=== PATIENT | female | born 1995 | race African-American/Black ===

== ENCOUNTER 2021-01-02 20:22 | Inpatient (IN) ==
[2021-01-03 02:54] LABS: Immature Granulocytes % 2.7 %; Immature Granulocytes Absolute 0.13 #; Lymphocytes # 0.6 10*3/uL (1.4-4.0); Lymphocytes % 12.8 % (21.3-54.2); Mean Corpuscular HGB Conc 32.5 GM/DL (32-36); Mean Corpuscular Volume 85.5 FL (87-102); Mean Platelet Volume 12.3 FL (9.6-12.0); Monocytes % 5.6 % (1.7-12.7); Neutrophils % 78.9 % (38.7-73.9); Platelet Count 151 T/CUMM (130-400); Red Blood Count 4.68 MC/CUMM (3.8-5.5); Red Cell Distribution Width 13.9 % (9.3-17.3); White Blood Count 4.9 T/CUMM (4-12)
[2021-01-03 03:14] LABS: Alanine Aminotransferase 34 U/L (13-56); Albumin 2.9 G/DL (3.4-5.0); Alkaline Phosphatase 100 U/L (45-117); Aspartate Amino Transferase 40 U/L (0-37); Bilirubin,Total < 0.39 MG/DL (0.20-1.00); Blood Urea Nitrogen 5 MG/DL (7-18); Carbon Dioxide 19 MMOL/L (21-32); Estimated Glom Filtration Rate 212 ML/MIN; Glucose 133 MG/DL (74-106); Osmolality,Calculated 266.2 MOS/KG (273-304); Potassium 3.4 MMOL/L (3.5-5.1); Sodium 134 MMOL/L (136-145); Total Protein 7.5 G/DL (6.4-8.2)
[2021-01-03 03:55] LABS: Hypochromasia Slight; Microcytosis Slight
[2021-01-03 03:56] LABS: Platelet Estimate Adequate
[2021-01-03] MEDS ORDERED: DEXAMETHASONE 4 MG/1 ML VIAL IM STA (05:06)
[2021-01-03] MEDS ORDERED: SODIUM CHLORIDE 0.9% 1,000 ML IV STA (05:06)
[2021-01-03] MEDS ORDERED: PIPERACILLIN/TAZOBACTAM 3,375 MG in SODIUM CHLORIDE 0.9% 100 ML IV STA (05:25)
[2021-01-03] MEDS ORDERED: ENOXAPARIN 120 MG/0.8 ML SYRINGE SUBCUT STA (05:40)
[2021-01-03] MEDS ORDERED: GLUCAGON 1 MG VIAL IM PRN (05:50)
[2021-01-03] MEDS ORDERED: ACETAMINOPHEN 500 MG TABLET PO STA (05:50)
[2021-01-03] MEDS ORDERED: DEXTROSE 50% 25 GM/50 ML VIAL IV PRN (05:50)
[2021-01-03] MEDS ORDERED: hydrALAZINE 20 MG/1 ML VIAL IV PRN (06:05)
[2021-01-03] MEDS ORDERED: ACETAMINOPHEN 325 MG TABLET PO PRN (06:05)
[2021-01-03] MEDS ORDERED: CALCIUM CARBONATE CHEW 500 MG TABLET PO PRN (06:05)
[2021-01-03] MEDS ORDERED: NICOTINE 21 MG/24 HR PATCH TRANSDERM PRN (06:05)
[2021-01-03] MEDS ORDERED: MELATONIN 3 MG TABLET PO PRN (06:05)
[2021-01-03] MEDS ORDERED: ONDANSETRON 4 MG/2 ML VIAL IV PRN (06:05)
[2021-01-03] MEDS ORDERED: MORPHINE 2 MG/1 ML SYRINGE IV PRN (06:05)
[2021-01-03 06:34] LABS: Bilirubin,Urine Negative (Negative); Blood, Urine Negative (Negative); Glucose,Urine (UA) 50 mg/dL (Negative); Ketones,Urine 20 mg/dL (Negative); Mucus,Urine Occasional /LPF (Occasional); Nitrite,Urine Negative (Negative); Protein,Urine 100 MG/DL; RBC,Urine 31 /HPF (0-4); Squamous Epithelial Cell,Urine Many /HPF (0-10); Urine Appearance CLOUDY (Clear); Urine Color Amber (Yellow)
[2021-01-03] MEDS ORDERED: REMDESIVIR 200 MG in SODIUM CHLORIDE 0.9% 210 ML IV ONE (08:00)
[2021-01-03] MEDS: DEXAMETHASONE 4 MG/1 ML VIAL IV SCH (08:36)
[2021-01-03] MEDS: SODIUM CHLORIDE 0.9% 1,000 ML IV SCH ×2 (08:36→16:48)
[2021-01-03] MEDS: FAMOTIDINE 20 MG TABLET PO SCH ×2 (08:38→22:30)
[2021-01-03] MEDS: CHOLECALCIFEROL 1,000 UNIT TABLET PO SCH (08:38)
[2021-01-03] MEDS: ASCORBIC ACID 500 MG TABLET PO SCH ×2 (08:38→22:30)
[2021-01-03] MEDS: ZINC GLUCONATE 50 MG TABLET PO SCH (08:38)
[2021-01-03] MEDS: CETIRIZINE 10 MG TABLET PO SCH (08:38)
[2021-01-03] MEDS ORDERED: ENOXAPARIN 40 MG/0.4 ML SYRINGE SUBCUT SCH (17:30)
[2021-01-03] MEDS: cefTRIAXone 1,000 MG in SODIUM CHLORIDE 0.9% 100 ML IV SCH (17:33)
[2021-01-03] MEDS: guaiFENesin 200 MG/10 ML UDCUP PO PRN (23:15)
[2021-01-04] MEDS: SODIUM CHLORIDE 0.9% 1,000 ML IV SCH ×2 (01:20→14:32)
[2021-01-04 08:17] LABS: Basophils % 0.2 % (0.0-0.8); Eosinophils % 0.2 % (0.00-10.9); Hematocrit 34.5 VOL% (35.7-47.0); Immature Granulocytes % 2.5 %; Immature Granulocytes Absolute 0.12 #; Lymphocytes # 0.8 10*3/uL (1.4-4.0); Lymphocytes % 15.4 % (21.3-54.2); Mean Corpuscular HGB Conc 31.9 GM/DL (32-36); Mean Corpuscular Volume 86.9 FL (87-102); Mean Platelet Volume 11.5 FL (9.6-12.0); Monocytes % 4.7 % (1.7-12.7); Platelet Count 134 T/CUMM (130-400); Red Blood Count 3.97 MC/CUMM (3.8-5.5); Red Cell Distribution Width 14.2 % (9.3-17.3); White Blood Count 4.9 T/CUMM (4-12)
[2021-01-04 08:29] LABS: Alanine Aminotransferase 46 U/L (13-56); Albumin 2.4 G/DL (3.4-5.0); Alkaline Phosphatase 83 U/L (45-117); Aspartate Amino Transferase 59 U/L (0-37); Bilirubin,Total < 0.39 MG/DL (0.20-1.00); Blood Urea Nitrogen 4 MG/DL (7-18); Calcium 8.7 MG/DL (8.5-10.1); Carbon Dioxide 19 MMOL/L (21-32); Eosinophils 1 % (0-10); Estimated Glom Filtration Rate 221 ML/MIN; Glucose 96 MG/DL (74-106); Hypochromasia 1+; Lymphocytes 14 % (20-55); Microcytosis 1+; Osmolality,Calculated 273.5 MOS/KG (273-304); Platelet Estimate Normal; Potassium 3.2 MMOL/L (3.5-5.1); Segmented Neutrophils 82 % (50-85); Sodium 139 MMOL/L (136-145); Total Cells Counted 100; Total Protein 6.3 G/DL (6.4-8.2)
[2021-01-04] MEDS: ASCORBIC ACID 500 MG TABLET PO SCH ×2 (10:04→21:05)
[2021-01-04] MEDS: CHOLECALCIFEROL 1,000 UNIT TABLET PO SCH (10:04)
[2021-01-04] MEDS: AZITHROMYCIN 250 MG TABLET PO SCH (10:04)
[2021-01-04] MEDS: FAMOTIDINE 20 MG TABLET PO SCH ×2 (10:04→21:05)
[2021-01-04] MEDS: ZINC GLUCONATE 50 MG TABLET PO SCH (10:04)
[2021-01-04] MEDS: CETIRIZINE 10 MG TABLET PO SCH (10:04)
[2021-01-04] MEDS: REMDESIVIR 100 MG in SODIUM CHLORIDE 0.9% 100 ML IV SCH (10:05)
[2021-01-04] MEDS: ENOXAPARIN 40 MG/0.4 ML SYRINGE SUBCUT SCH ×2 (10:15→21:06)
[2021-01-04] MEDS: DEXAMETHASONE 4 MG/1 ML VIAL IV SCH (10:39)
[2021-01-04] MEDS: cefTRIAXone 1,000 MG in SODIUM CHLORIDE 0.9% 100 ML IV SCH (17:38)
[2021-01-05 06:31] LABS: Basophils % 0.3 % (0.0-0.8); Hematocrit 33.4 VOL% (35.7-47.0); Hemoglobin 10.8 GM/DL (12.0-16.0); Immature Granulocytes % 4.3 %; Immature Granulocytes Absolute 0.16 #; Lymphocytes # 0.6 10*3/uL (1.4-4.0); Lymphocytes % 15.7 % (21.3-54.2); Mean Corpuscular HGB Conc 32.3 GM/DL (32-36); Mean Platelet Volume 11.4 FL (9.6-12.0); Monocytes % 6.8 % (1.7-12.7); Neutrophils % 72.9 % (38.7-73.9); Platelet Count 145 T/CUMM (130-400); Red Blood Count 3.84 MC/CUMM (3.8-5.5); Red Cell Distribution Width 14.4 % (9.3-17.3); White Blood Count 3.7 T/CUMM (4-12)
[2021-01-05 07:02] LABS: Albumin 2.2 G/DL (3.4-5.0); Bilirubin,Total 0.9 MG/DL (0.20-1.00); Calcium 8.7 MG/DL (8.5-10.1); Osmolality,Calculated 275.4 MOS/KG (273-304); Total Protein 5.8 G/DL (6.4-8.2)
[2021-01-05] MEDS: SODIUM CHLORIDE 0.9% 1,000 ML IV SCH ×4 (09:06→19:45)
[2021-01-05] MEDS: ENOXAPARIN 40 MG/0.4 ML SYRINGE SUBCUT SCH ×2 (10:22→20:05)
[2021-01-05] MEDS: REMDESIVIR 100 MG in SODIUM CHLORIDE 0.9% 100 ML IV SCH (10:23)
[2021-01-05] MEDS: DEXAMETHASONE 4 MG/1 ML VIAL IV SCH (10:24)
[2021-01-05] MEDS: AZITHROMYCIN 250 MG TABLET PO SCH (10:25)
[2021-01-05] MEDS: FAMOTIDINE 20 MG TABLET PO SCH ×2 (10:25→20:05)
[2021-01-05] MEDS: CETIRIZINE 10 MG TABLET PO SCH (10:25)
[2021-01-05] MEDS: ZINC GLUCONATE 50 MG TABLET PO SCH (10:25)
[2021-01-05] MEDS: CHOLECALCIFEROL 1,000 UNIT TABLET PO SCH (10:25)
[2021-01-05] MEDS: POTASSIUM CHLORIDE 20 MEQ TABLET PO PRN ×3 (10:25→14:20)
[2021-01-05] MEDS: ASCORBIC ACID 500 MG TABLET PO SCH ×2 (10:25→20:05)
[2021-01-05] MEDS: cefTRIAXone 1,000 MG in SODIUM CHLORIDE 0.9% 100 ML IV SCH (17:08)
[2021-01-06] MEDS: SODIUM CHLORIDE 0.9% 1,000 ML IV SCH (03:35)
[2021-01-06 05:03] LABS: Basophils % 0.6 % (0.0-0.8); Hematocrit 31.5 VOL% (35.7-47.0); Hemoglobin 10.1 GM/DL (12.0-16.0); Immature Granulocytes % 6.6 %; Immature Granulocytes Absolute 0.21 #; Lymphocytes # 0.7 10*3/uL (1.4-4.0); Lymphocytes % 21.7 % (21.3-54.2); Mean Corpuscular HGB Conc 32.1 GM/DL (32-36); Mean Corpuscular Volume 87.7 FL (87-102); Mean Platelet Volume 11.3 FL (9.6-12.0); Monocytes % 7.5 % (1.7-12.7); Neutrophils % 63.6 % (38.7-73.9); Platelet Count 170 T/CUMM (130-400); Red Blood Count 3.59 MC/CUMM (3.8-5.5); Red Cell Distribution Width 14.5 % (9.3-17.3); White Blood Count 3.2 T/CUMM (4-12)
[2021-01-06 05:41] LABS: Alanine Aminotransferase 41 U/L (13-56); Albumin 2.2 G/DL (3.4-5.0); Alkaline Phosphatase 79 U/L (45-117); Aspartate Amino Transferase 39 U/L (0-37); Bilirubin,Total < 0.39 MG/DL (0.20-1.00); Blood Urea Nitrogen 3 MG/DL (7-18); Calcium 8.4 MG/DL (8.5-10.1); Carbon Dioxide 18 MMOL/L (21-32); Estimated Glom Filtration Rate 208 ML/MIN; Glucose 142 MG/DL (74-106); Osmolality,Calculated 281.1 MOS/KG (273-304); Potassium 2.8 MMOL/L (3.5-5.1); Sodium 142 MMOL/L (136-145); Total Protein 5.9 G/DL (6.4-8.2)
[2021-01-06 05:42] LABS: Ferritin 20.9 ng/ml (8-252)
[2021-01-06 05:54] LABS: Band Neutrophils 1 % (0-10); Lymphocytes 25 % (20-55); Myelocytes 1 %; Segmented Neutrophils 65 % (50-85); Total Cells Counted 100
[2021-01-06 05:55] LABS: Hypochromasia 1+; Microcytosis 1+; Ovalocytes Slight; Platelet Estimate Adequate
[2021-01-06] MEDS: ENOXAPARIN 40 MG/0.4 ML SYRINGE SUBCUT SCH ×3 (09:05→20:33)
[2021-01-06] MEDS: ZINC GLUCONATE 50 MG TABLET PO SCH (09:06)
[2021-01-06] MEDS: CHOLECALCIFEROL 1,000 UNIT TABLET PO SCH (09:06)
[2021-01-06] MEDS: FAMOTIDINE 20 MG TABLET PO SCH ×3 (09:06→20:33)
[2021-01-06] MEDS: ASCORBIC ACID 500 MG TABLET PO SCH ×3 (09:06→20:33)
[2021-01-06] MEDS: AZITHROMYCIN 250 MG TABLET PO SCH (09:07)
[2021-01-06] MEDS: CETIRIZINE 10 MG TABLET PO SCH (09:07)
[2021-01-06] MEDS: POTASSIUM CHLORIDE 20 MEQ TABLET PO PRN ×4 (09:07→17:12)
[2021-01-06] MEDS: DEXAMETHASONE 4 MG/1 ML VIAL IV SCH (09:09)
[2021-01-06] MEDS: guaiFENesin 200 MG/10 ML UDCUP PO PRN ×2 (09:18→17:12)
[2021-01-06] MEDS: REMDESIVIR 100 MG in SODIUM CHLORIDE 0.9% 100 ML IV SCH (09:44)
[2021-01-06] MEDS: cefTRIAXone 1,000 MG in SODIUM CHLORIDE 0.9% 100 ML IV SCH (17:11)
[2021-01-07 05:14] LABS: Basophils % 0.6 % (0.0-0.8); Eosinophils % 0.2 % (0.00-10.9); Hematocrit 34.4 VOL% (35.7-47.0); Hemoglobin 11.2 GM/DL (12.0-16.0); Immature Granulocytes % 7.8 %; Immature Granulocytes Absolute 0.38 #; Lymphocytes # 1.3 10*3/uL (1.4-4.0); Lymphocytes % 26.5 % (21.3-54.2); Mean Corpuscular HGB Conc 32.6 GM/DL (32-36); Mean Corpuscular Volume 85.4 FL (87-102); Mean Platelet Volume 11.4 FL (9.6-12.0); Monocytes % 8.6 % (1.7-12.7); Neutrophils % 56.3 % (38.7-73.9); Platelet Count 232 T/CUMM (130-400); Red Blood Count 4.03 MC/CUMM (3.8-5.5); Red Cell Distribution Width 14.4 % (9.3-17.3); White Blood Count 4.9 T/CUMM (4-12)
[2021-01-07 05:39] LABS: Calcium 8.8 MG/DL (8.5-10.1); Osmolality,Calculated 275.4 MOS/KG (273-304); Potassium 3.2 MMOL/L (3.5-5.1)
[2021-01-07 05:42] LABS: Lymphocytes 20 % (20-55); Platelet Estimate Normal; Segmented Neutrophils 70 % (50-85); Total Cells Counted 100
[2021-01-07] MEDS ORDERED: ENOXAPARIN 80 MG/0.8 ML SYRINGE SUBCUT SCH (09:00)
[2021-01-07] MEDS ORDERED: ENOXAPARIN 100 MG/ML SYRINGE SUBCUT SCH (09:30)
[2021-01-07] MEDS: FAMOTIDINE 20 MG TABLET PO SCH (09:54)
[2021-01-07] MEDS: REMDESIVIR 100 MG in SODIUM CHLORIDE 0.9% 100 ML IV SCH (09:55)
[2021-01-07] MEDS: CHOLECALCIFEROL 1,000 UNIT TABLET PO SCH (10:00)
[2021-01-07] MEDS: ASCORBIC ACID 500 MG TABLET PO SCH (10:00)
[2021-01-07] MEDS: ZINC GLUCONATE 50 MG TABLET PO SCH (10:02)
[2021-01-07] MEDS: AZITHROMYCIN 250 MG TABLET PO SCH (10:05)
[2021-01-07] MEDS: CETIRIZINE 10 MG TABLET PO SCH (10:10)
[2021-01-07] MEDS: DEXAMETHASONE 4 MG/1 ML VIAL IV SCH (12:53)
[2021-01-07] MEDS: ENOXAPARIN 40 MG/0.4 ML SYRINGE SUBCUT SCH (13:00)
[2021-01-07] MEDS: cefTRIAXone 1,000 MG in SODIUM CHLORIDE 0.9% 100 ML IV SCH (16:28)
[2021-01-07 17:11] VITALS: BP 101/69
== END 2021-01-07 20:15 | disposition home or self-care (01) | DRG 566 ==
LOC: N.ED 20:22 → SUATTDRO 01-03 06:05 → N.EDINP 01-03 06:05 → N.2E 01-03 10:57
PROVIDERS: ADMIT Internal Medicine; ATTEND Obstetrics & Gynecology

== ENCOUNTER 2021-03-25 10:19 | Inpatient (IN) ==
[2021-03-25] MEDS ORDERED: BUTORPHANOL 1 MG/ML VIAL IM ONE (11:56)
[2021-03-25] MEDS ORDERED: BUTORPHANOL 1 MG/ML VIAL IV PRN (15:14)
[2021-03-25] MEDS ORDERED: ONDANSETRON 4 MG/2 ML VIAL IV PRN ×2 (15:14→23:44)
[2021-03-25] MEDS ORDERED: ePHEDrine 50 MG/ML VIAL IV PRN (15:25)
[2021-03-25] MEDS ORDERED: diphenhydrAMINE 50 MG/1 ML VIAL IV PRN ×2 (15:25)
[2021-03-25] MEDS ORDERED: PROMETHAZINE 25 MG/1 ML VIAL IM ONE (15:25)
[2021-03-25] MEDS ORDERED: hydrOXYzine HCL 25 MG/1 ML VIAL IM PRN (15:25)
[2021-03-25] MEDS ORDERED: CITRIC ACID/SODIUM CITRATE 30 ML UDCUP PO ONE (15:25)
[2021-03-25] MEDS ORDERED: ONDANSETRON 4 MG/2 ML VIAL IV ONE (15:25)
[2021-03-25] MEDS ORDERED: LACTATED RINGERS 1,000 ML IV ONE (15:25)
[2021-03-25] MEDS ORDERED: FAMOTIDINE 20 MG/2 ML VIAL IV ONE (15:25)
[2021-03-25] MEDS ORDERED: NALOXONE 0.4 MG/ML VIAL IV PRN (15:25)
[2021-03-25] MEDS ORDERED: fentaNYL 2 MCG/ROPIV 0.2% EPID 100 ML EPIDURAL SCH (15:30)
[2021-03-25] MEDS ORDERED: AMPICILLIN INJ 2,000 MG in SODIUM CHLORIDE 0.9% 100 ML IV ONE (15:30)
[2021-03-25 15:50] LABS: Basophils % 0.2 % (0.0-0.8); Eosinophils % 0.2 % (0.00-10.9); Hematocrit 36.5 VOL% (35.7-47.0); Hemoglobin 11.1 GM/DL (12.0-16.0); Immature Granulocytes % 0.7 %; Immature Granulocytes Absolute 0.06 #; Lymphocytes # 0.8 10*3/uL (1.4-4.0); Lymphocytes % 8.8 % (21.3-54.2); Mean Corpuscular HGB Conc 30.4 GM/DL (32-36); Mean Platelet Volume 12.3 FL (9.6-12.0); Monocytes % 8.5 % (1.7-12.7); Neutrophils % 81.6 % (38.7-73.9); Platelet Count 214 T/CUMM (130-400); Red Cell Distribution Width 14.9 % (9.3-17.3); White Blood Count 8.6 T/CUMM (4-12)
[2021-03-25] MEDS: LACTATED RINGERS 1,000 ML IV PRN (16:17)
[2021-03-25] MEDS ORDERED: TERBUTALINE 1 MG/1 ML VIAL SUBCUT PRN (16:21)
[2021-03-25] MEDS ORDERED: TERBUTALINE 1 MG/1 ML VIAL ONE (16:22)
[2021-03-25 16:44] LABS: Hepatitis B Surface Ag Quant < 0.10 Index; Hepatitis B Surface Ag Result Non-Reactive (NonReactive)
[2021-03-25 17:04] LABS: HIV Antigen/Antibody Result Nonreactive (Nonreactive)
[2021-03-25 18:04] LABS: Bilirubin,Urine Negative (Negative); Blood, Urine Small mg/dL (Negative); Glucose,Urine (UA) 50 mg/dL (Negative); Ketones,Urine 80 mg/dL (Negative); Mucus,Urine Occasional /LPF (Occasional); Nitrite,Urine Negative (Negative); Protein,Urine Negative; RBC,Urine 9 /HPF (0-4); Squamous Epithelial Cell,Urine Occasional /HPF (0-10); Urine Appearance CLEAR (Clear); Urine Color Yellow (Yellow); Urine Specific Gravity 1.019 (1.001-1.035); Urine Urobilinogen < 2.0 EU/DL (0.2-1.0)
[2021-03-25] MEDS ORDERED: AMPICILLIN INJ 1,000 MG in SODIUM CHLORIDE 0.9% 100 ML IV SCH (19:30)
[2021-03-25] MEDS ORDERED: OXYTOCIN/LR 20 UNIT/1,000 ML BAG IV SCH (20:00)
[2021-03-25] MEDS ORDERED: miSOPROStoL 200 MCG TABLET ONE (22:46)
[2021-03-25] MEDS ORDERED: METHYLERGONOVINE 0.2 MG/1 ML AMP ONE (22:47)
[2021-03-25] MEDS ORDERED: SODIUM CHLORIDE 0.9% 0 ML IV ONE (22:47)
[2021-03-25] MEDS ORDERED: TRANEXAMIC ACID 1,000 MG/10 ML VIAL ONE (22:47)
[2021-03-25] MEDS ORDERED: CARBOPROST TROMETHAMINE 250 MCG/ML AMP IM ONE (22:48)
[2021-03-25 23:40] LABS: Cord Arterial Blood HCO3 21.6 MMOL/L
[2021-03-25 23:42] LABS: Hematocrit 29.7 VOL% (35.7-47.0); Hemoglobin 9.1 GM/DL (12.0-16.0)
[2021-03-25 23:42] LABS: Cord Venous Blood PCO2 37.6 MMHG; Cord Venous Blood PO2 40.7
[2021-03-25] MEDS ORDERED: HYDROCORTISONE 2.5% RECTAL CREAM 30 GM TUBE TOP PRN (23:44)
[2021-03-25] MEDS ORDERED: ACETAMINOPHEN 325 MG TABLET PO PRN (23:44)
[2021-03-25] MEDS ORDERED: MEASLES/MUMPS/RUBELLA VACCINE 0.5 ML VIAL SUBCUT ONE (23:44)
[2021-03-25] MEDS ORDERED: DIPH/TET/ACEL PERT BOOSTER VACCINE 0.5 ML VIAL IM ONE (23:44)
[2021-03-25] MEDS ORDERED: WITCH HAZEL PADS 100/JAR TOP PRN (23:44)
[2021-03-25] MEDS ORDERED: oxyCODONE/ACETAMINOPHEN 5-325 MG TABLET PO PRN (23:44)
[2021-03-25] MEDS ORDERED: OXYTOCIN/LR 20 UNIT/1,000 ML BAG IV ONE (23:44)
[2021-03-25] MEDS ORDERED: LANOLIN 50% CREAM 0.3 OZ TUBE TOP PRN (23:44)
[2021-03-25] MEDS ORDERED: RHO(D) IMMUNE GLOBULIN 300 MCG SYRINGE IM ONE (23:44)
[2021-03-25] MEDS ORDERED: BISACODYL 10 MG SUPP RECTAL PRN (23:44)
[2021-03-25] MEDS ORDERED: BENZOCAINE 20%/MENTHOL 0.5% SPRAY 56 GM CAN TOP PRN (23:44)
[2021-03-25] MEDS ORDERED: SODIUM CHLORIDE 0.9% 1,000 ML IV PRN (23:59)
[2021-03-26] MEDS ORDERED: OXYTOCIN/LR 20 UNIT/1,000 ML BAG IV ONE (00:13)
[2021-03-26] MEDS: LACTATED RINGERS 1,000 ML IV PRN (00:17)
[2021-03-26] MEDS: oxyCODONE/ACETAMINOPHEN 5-325 MG TABLET PO PRN ×2 (03:29→16:11)
[2021-03-26 05:24] LABS: Basophils % 0.2 % (0.0-0.8); Hematocrit 29.4 VOL% (35.7-47.0); Immature Granulocytes % 0.8 %; Immature Granulocytes Absolute 0.13 #; Lymphocytes # 0.9 10*3/uL (1.4-4.0); Lymphocytes % 5.8 % (21.3-54.2); Mean Corpuscular HGB Conc 30.6 GM/DL (32-36); Mean Corpuscular Volume 83.1 FL (87-102); Mean Platelet Volume 12.7 FL (9.6-12.0); Monocytes % 8.2 % (1.7-12.7); Platelet Count 194 T/CUMM (130-400); Red Blood Count 3.54 MC/CUMM (3.8-5.5); Red Cell Distribution Width 14.8 % (9.3-17.3)
[2021-03-26] MEDS: DOCUSATE SODIUM 100 MG CAPSULE PO SCH ×2 (08:25→20:06)
[2021-03-26] MEDS: IBUPROFEN 800 MG TABLET PO PRN ×2 (08:25→16:09)
[2021-03-27] MEDS: DOCUSATE SODIUM 100 MG CAPSULE PO SCH (07:29)
[2021-03-27] MEDS: IBUPROFEN 800 MG TABLET PO PRN ×2 (07:29→15:38)
[2021-03-27 08:02] VITALS: BP 129/82
[2021-03-27] MEDS: oxyCODONE/ACETAMINOPHEN 5-325 MG TABLET PO PRN (15:38)
== END 2021-03-27 17:30 | disposition home or self-care (01) | DRG 560 ==
LOC: N.LDOUT 10:19 → N.LD 10:23 → N.OB 03-26 11:45
PROVIDERS: ADMIT Student in an Organized Health Care Education/Training Program; ATTEND Obstetrics & Gynecology